=== PATIENT | male | born 1970 | race Native Hawaiian/Other Pacific Islander ===

== ENCOUNTER 2018-07-23 03:00 | Emergency (ER) | payer OTHER ==
[~2018-07-23] VITALS: Ht 175.3 cm; Wt 88.5 kg
[2018-07-23 04:00] VITALS: BP 155/90; TEMP 98.1
== END 2018-07-23 04:03 | disposition home or self-care (01) ==
LOC: ED 03:00
PROC: 0HQ2XZZ Repair Right Ear Skin, External Approach (ICD-10-PCS; principal; 2018-07-23)
DX: S01.311A Laceration without foreign body of right ear, initial encounter (principal); W11.XXXA Fall on and from ladder, initial encounter; W22.8XXA Striking against or struck by other objects, initial encounter
CPT/HCPCS: 99283